=== PATIENT | male | born 1975 | race Caucasian/White ===

== ENCOUNTER 2017-10-04 06:58 | Day surgery (SDC) | payer BC ==
[2017-10-04] MEDS ORDERED: HYDROmorphone 2 MG/ML VIAL IV (07:00)
[2017-10-04] MEDS ORDERED: fentaNYL PF VIAL 100 MCG/2 ML VIAL IV ×2 (07:00)
[2017-10-04] MEDS ORDERED: LIDOCAINE 1% PF 2 ML VIAL. ID (07:00)
[2017-10-04] MEDS ORDERED: MORPHINE SULFATE 2 MG/ML DISP.SYRIN. IV (07:00)
[2017-10-04] MEDS ORDERED: PROCHLORPERAZINE 10 MG/2 ML VIAL. IV (07:00)
[2017-10-04] MEDS ORDERED: ONDANSETRON PF 4 MG/2 ML VIAL. IV (07:00)
[2017-10-04] MEDS ORDERED: ceFAZolin 2GM PREMIX 2 GM/50 ML BAG IV (07:00)
[2017-10-04] MEDS: IV RINGERS,LACTATED 1000ML 1,000 ML IV (07:41)
[2017-10-04] MEDS ORDERED: fentaNYL PF VIAL 100 MCG/2 ML VIAL (08:13)
[2017-10-04] MEDS ORDERED: MIDAZOLAM HCL/PF 2 MG/2 ML VIAL. (08:14)
[2017-10-04] MEDS ORDERED: PROPOFOL 20 ML IV (08:14)
[2017-10-04] MEDS ORDERED: SEVOFLURANE 31 TO 60 MINUTES. IH (08:14)
[2017-10-04] MEDS ORDERED: LIDOCAINE 2% PF Vial for OR 5 ML VIAL. (08:14)
[2017-10-04] MEDS ORDERED: LIDOCAINE 2% 20 ML VIAL. (08:19)
[2017-10-04] MEDS: BACITRACIN 50,000 UNIT in IV NORMAL SALINE 1000ML BAG 1,000 ML IRR (09:22)
[2017-10-04] MEDS: LIDOCAINE 1% 20 ML VIAL. (09:22)
== END 2017-10-04 10:48 | disposition home or self-care (01) ==
LOC: SURG 06:58
DX: G56.01 Carpal tunnel syndrome, right upper limb (principal); K21.9 Gastro-esophageal reflux disease without esophagitis; M19.90 Unspecified osteoarthritis, unspecified site; Z86.69 Personal history of other diseases of the nervous system and sense organs; Z87.39 Personal history of other diseases of the musculoskeletal system and connective tissue; Z72.89 Other problems related to lifestyle
CPT/HCPCS: 64721; J0690; J2250; J2704; J3010; J3490; J7030